=== PATIENT | female | born 1935 | race African-American/Black ===

== ENCOUNTER → 2018-11-17 | Outpatient (CLI) | payer MEDICARE ==
[2018-11-17 11:04] LABS: ANION GAP 8 (5-19); BLOOD UREA NITROGEN 20 mg/dL (7-20); CALCIUM 9.8 mg/dL (8.4-10.2); CARBON DIOXIDE 27 mmol/L (22-30); CHLORIDE 107 mmol/L (98-107); GLUCOSE 83 mg/dL (75-110); SODIUM 142.1 mmol/L (137-145)
[2018-11-18 15:37] LABS: CREATININE URINE 64.7 mg/dL (Not Estab.); MICROALBUMIN URINE 6.5 ug/mL (Not Estab.)
== END ==
LOC: OD 09:31
PROVIDERS: ATTEND Family Medicine
DX: E11.9 Type 2 diabetes mellitus without complications (principal)
CPT/HCPCS: 36415; 80048; 82043; 82570; 83036

== ENCOUNTER → 2019-02-01 | Outpatient (CLI) | payer MEDICARE ==
--- NOTE | 2019-02-04 14:55 | XCELERA REPORT ---
[address] [address] Lower Extremity Arterial Evaluation Name: MIGUEL SERRANO Age: 83 yrs Gender: Female : 1935 Patient Status: Preadmit Patient Location: SP Study Date: 02/01/2019 10:51 AM Procedure: A color flow and duplex scan of the lower extremity arteries was performed bilaterally with velocity and waveform anaylsis. Reason For Study: ABSENT PULSES Ordering Physician: GHANSHYAM GRIMALDO Performed By: Cori Sharp Measurements and Calculations Right Left Prox PFA PSV 162.3 141.0 cm/sec Prox SFA PSV 123.3 100.0 cm/sec Mid SFA PSV 103.1 29.8 cm/sec Dist SFA PSV 88.5 30.9 cm/sec Prox Pop A PSV 61.5 46.7 cm/sec Prox JESSICA PSV 21.1 cm/sec Mid JESSICA PSV 37.3 cm/sec Prox REAL ESTATE JOB TITLES PSV 34.1 cm/sec Mid REAL ESTATE JOB TITLES PSV 39.4 cm/sec Right Side Arterial Evaluation Normal velocity and triphasic waveforms, spectral broadening noted in the Common Femoral artery to Femoral . Biphasic with normal velocity, spectral broadening in the Popliteal to Posterior Tibial arteries. Monophasic with low normal, to low velocities in the Anterior Tibial. Ankle Brachial index 1.0. Left Side Arterial Evaluation Normal velocity and triphasic waveforms, spectral broadening noted in the Common Femoral artery to Femoral . Monophasic with low velocity, spectral broadening, attenuation from the Mid Femoral to infrageniculate vessels. Ankle Brachial index 0.6. Interpretation Summary Moderate hemodynamically significant lesions in the right lower extremity only, on duplex imaging, at rest. Severe hemodynamically significant lesions in the left lower extremity only, on duplex imaging, at rest. DOUGLAS's indicate normal findings on the right, moderate diminution on the left. These are non concordant with the duplex findings with are much worse. Clinical correlation is recommended. The patient is know to have vascular stents in place. : GHANSHYAM GRIMALDO > Ghanshyam Grimaldo
== END ==
LOC: SP 10:38
PROVIDERS: ATTEND Surgery
DX: R09.89 Other specified symptoms and signs involving the circulatory and respiratory systems (principal)
CPT/HCPCS: 93925

== ENCOUNTER → 2019-03-08 | Outpatient (CLI) | payer MEDICARE ==
--- NOTE | 2019-03-08 16:09 | XCELERA REPORT ---
[address] [address] Transthoracic Echocardiogram Report Name: MIGUEL SERRANO Age: 83 yrs Gender: Female : 1935 Patient Status: Outpatient Patient Location: SP Study Date: 03/08/2019 08:38 AM Height: 61 in Weight: 189 lb BSA: 1.8 m2 Reason For Study: BLE EDEMA Ordering Physician: ALEJANDRA^SEQUIA^A^^MD Performed By: Yee Combs Interpretation Summary MInimal post pericardial effusion Normal 3 cusps AV, but calcified aotic annulus, no , no AR.mod. calcified aortic cusps (RCC, NCC). Mild mitral annular calcification, thickened mitral leaflets No MS, no MVP, mild MR with mild LA enlargement. No LVH, LVEF 30-35%, with stage I LV diastolic dysfunctiion. Hypokinetic inferior wall, posterior wall, and apical lateral segments, The IVS and AW normal.Mild LV enlargement. RH is normal RVSP upper normal 30 mm , RAP 3 mm. mild TR, no TS. No ASD. MMode/2D Measurements & Calculations RVDd: 3.5 cm LVIDd: 4.9 cm FS: 18.8 % Ao root diam: 2.3 cm IVSd: 0.85 cm LVIDs: 4.0 cm EDV(Teich): Ao root area: LVPWd: 0.84 cm 114.1 ml ESV(Teich): 70.0 ml4.3 cm2 LA dimension: 3.3 cm EF(Teich): 38.6 % LVLd ap4: 7.1 cm SV(MOD-sp4): EDV(MOD-sp4): 29.0 ml 93.0 ml LVLs ap4: 6.5 cm ESV(MOD-sp4): 64.0 ml EF(MOD-sp4): 31.2 % Doppler Measurements & Calculations MV E max natali: MV P1/2t max natali: Ao V2 max: LV V1 max P.3 cm/sec 96.3 cm/sec 159.0 cm/sec 4.6 mmHg MV A max natali: MV P1/2t: 60.7 msec Ao max PG: LV V1 max: 133.3 cm/sec 10.1 mmHg 107.1 cm/sec MV E/A: 0.71 MVA(P1/2t): 3.6 cm2 MV dec slope: 464.1 cm/sec2 MV dec time: 0.19 sec PA V2 max: TR max natali: MV P1/2t-pr_phl: 66.1 cm/sec 282.3 cm/sec 60.7 msec PA max P.7 mmHgTR max P.9 mmHg : ALEJANDRA^RAYSHAWN^A^^MD > Bill Becker
== END ==
LOC: SP 07:57
PROVIDERS: ATTEND Family Medicine
DX: R60.0 Localized edema (principal)
CPT/HCPCS: 93306

== ENCOUNTER 2019-05-01 06:49 | Day surgery (SDC) | payer MEDICARE ==
[~2019-05-01 06:49] MED LIST: RADIAL COCKTAIL SYRINGE 10 ML IV PRN
[2019-05-01] MEDS ORDERED: HEPARIN SODIUM,PORCINE/NS/PF 2,000 UNIT/1,000 ML RTUINJ IV ONE (07:06)
[2019-05-01] MEDS ORDERED: LIDOCAINE 1% INJ-PF (10 MG/ML) 30 ML SDV ONE (07:06)
[2019-05-01] MEDS ORDERED: ASPIRIN 325 MG TABLET ONE (07:35)
[2019-05-01] MEDS ORDERED: DIPHENHYDRAMINE HCL 25 MG CAPSULE ONE (07:35)
[2019-05-01] MEDS ORDERED: DIAZEPAM 5 MG TABLET ONE (07:35)
[2019-05-01] MEDS ORDERED: HEPARIN SOD (PORCINE) 1,000 UNIT/ML 10 ML VIAL ONE (07:57)
[2019-05-01] MEDS ORDERED: FENTANYL CITRATE INJ/PF 100 MCG/2 ML AMPUL ONE (08:05)
[2019-05-01] MEDS ORDERED: MIDAZOLAM 2 MG/2 ML INJ ONE (08:05)
[2019-05-01] MEDS ORDERED: ASPIRIN 325 MG TABLET PO ONE (10:30)
[2019-05-01] MEDS ORDERED: DIPHENHYDRAMINE HCL 25 MG CAPSULE PO ONE (10:30)
[2019-05-01] MEDS ORDERED: DIAZEPAM 5 MG TABLET PO ONE (10:30)
--- NOTE | 2019-05-01 10:36 | Operative Report ---
Operative Report DATE OF SURGERY: 05/01/19 PREOPERATIVE DIAGNOSIS: Congestive heart failure, cardiomyopathy POSTOPERATIVE DIAGNOSIS: Left main coronary artery disease ostial circumflex disease OPERATION: Radial left heart catheterization coronary angiography and left vent riculography SURGEON: FRIDA PAULINO ANESTHESIA: Moderate Sedation PROCEDURE: After informed consent was obtained the patient was brought to the cardiac catheterization lab and the right wrist was prepared in usual sterile and draped manner. Hemodynamic access was gained using micropuncture technique and the patient was anticoagulated with heparin. An intra-arterial cocktail of verapamil and lidocaine was administered. Selective coronary angiography was performed with a [place] catheter. This was exchanged with pigtail catheter and left ventriculography was performed in standard HAGAN projection. The patient left the Cardiac Catheterization Lab in stable condition, with intact distal pulses and no chest pain or other complications from the procedure. Conscious sedation was initiated, monitored, and maintained during the procedure with the start time of 925 and a completion time of 955 for a total procedure t yanira of 30 minutes. A total of 1.5 milligrams of Versed and 75 mcg of fentanyl were used for conscious sedation. HEMODYNAMIC DATA: [Aortic pressure to beginning the case is 137/57 post ventriculography LV pressure is 140/20 aortic pressure on pullback is 136/59 there is no evidence of significant gradient across the aortic valve] CORONARY ANATOMY: [] VENTRICULOGRAPHY: Ventriculography is performed in the HAGAN projection and demonstrates [mildly reduced left ventricular function with inferior posterior moderate hypokinesis the anterior wall is hyper dynamic visually ejection fraction is in the 40% range] . CORONARY ANGIOGRAPHY: [] LEFT MAIN: [Left main has an eccentric 40-50% stenosis at and involving the origin of the circumflex and bifurcation of the left main into the LAD] LEFT ANTERIOR DESCENDING: [The LAD in the midportion at a bifurcation with a large second diagonal branch has a 30 to 40% stenosis the ongoing LAD is normal and transapical it is a moderate to large caliber vessel] CIRCUMFLEX CORONARY: The circumflex is subtotally occluded there is TAMI II grade flow with a 95 to 99% ostial stenosis the ongoing circumflex gives rise to a bike bifurcating first obtuse marginal second obtuse marginal and what appears to be a codominant AV groove circumflex that is somewhat underfilled RIGHT CORONARY ARTERY: The right coronary artery is small caliber and minimally codominant with the circumflex and LAD no critical or focal obstructive lesions are seen IMPRESSION: 1. No evidence of significant valvular heart disease 2. Mildly reduced left ventricular function with inferior lateral hypokinesis 3. TAMI II grade flow and a subtotally occluded circumflex 4. 40 to 50% distal left main at the bifurcation of the LAD and involving the circumflex Recommendations: Patient would be best served with cardiothoracic surgery consultation and possible bypass In the event that she is deemed too high risk percutaneous intervention with hemodynamic support is possible CC Dr. Fuad Barrientos
--- NOTE | 2019-05-01 11:21 | EKG REPORT ---
SEVERITY:- ABNORMAL ECG - SINUS RHYTHM ABNORMAL T, CONSIDER ISCHEMIA, LATERAL LEADS : Confirmed by: Nayana Zayas MD 01-May-2019 11:21:10
[2019-05-01 12:46] VITALS: BP 144/83
--- NOTE | 2019-05-02 10:53 | RADIOLOGY REPORT (SQ) ---
EXAM DESCRIPTION: LEFT HEART CATH COMPLETE COMPLETED DATE/TIME: 05/02/2019 8:16 am REASON FOR STUDY: CHEST PAIN I50.9 HEART FAILURE, UNSPECIFIED COMPARISON: None. FLUOROSCOPY TIME: 2.9 minutes fluoroscopy time 21 images saved to PACS. TECHNIQUE: Intra-operative images acquired during surgical procedure to evaluate progress. NUMBER OF IMAGES: 21 LIMITATIONS: None. FINDINGS: Intraoperative fluoroscopic images obtained for cardiac catheterization. Please see opera tive report for detailed description. IMPRESSION: IMAGE(S) OBTAINED DURING PROCEDURE. COMMENT: Quality ID [id number]: Final reports for procedures using fluoroscopy that document radiation exp osure indices, or exposure time and number of fluorographic images (if radiation exposure indices are not available) Please consult full operative report of the attending physician for description of the procedure. TECHNICAL DOCUMENTATION: JOB ID: [id number] [employer]- All Rights Reserved Reading location - IP/workstation name: [email or web address]
== END 2019-05-01 12:45 | disposition home or self-care (01) ==
LOC: CCL 06:49
PROVIDERS: ATTEND Internal Medicine Cardiovascular Disease
DX: I25.10 Atherosclerotic heart disease of native coronary artery without angina pectoris (principal); E78.5 Hyperlipidemia, unspecified; E03.9 Hypothyroidism, unspecified; E11.9 Type 2 diabetes mellitus without complications; I10 Essential (primary) hypertension; I73.9 Peripheral vascular disease, unspecified; Z87.891 Personal history of nicotine dependence
CPT/HCPCS: 82962; 93458; 93005; 93010; J2250; A9270 ×3; J3010; J1644 ×2; J3490 ×4

== ENCOUNTER 2019-05-29 10:53 | Emergency (ER) | payer MEDICARE ==
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
[2019-05-29] MEDS ORDERED: ASPIRIN 81 MG TABLET, CHEWABLE PO ONE (11:31)
--- NOTE | 2019-05-29 12:00 | RADIOLOGY REPORT (SQ) ---
EXAM DESCRIPTION: CHEST SINGLE VIEW COMPLETED DATE/TIME: 05/29/2019 11:52 am REASON FOR STUDY: Anterior chest pain, 3 weeks postop CABG COMPARISON: None. NUMBER OF VIEWS: One view. TECHNIQUE: Single frontal radiographic view of the chest acquired. LIMITATIONS: None. FINDINGS: LUNGS AND PLEURA: No opacities, masses or pneumothorax. No pleural effusion. MEDIASTINUM AND HILAR STRUCTURES: No masses. Contour normal. HEART AND VASCULAR STRUCTURES: Heart normal in size. Normal vasculature. BONES: No acute findings. HARDWARE: Sternotomy wires are in place. OTHER: No other significant finding. IMPRESSION: NO SIGNIFICANT RADIOGRAPHIC FINDING IN THE CHEST. TECHNICAL DOCUMENTATION: JOB ID: [id number] [employer]- All Rights Reserved Reading location - IP/workstation name: [email or web address]
--- NOTE | 2019-05-29 12:36 | EKG REPORT ---
SEVERITY:- ABNORMAL ECG - SINUS RHYTHM BORDERLINE LEFT AXIS DEVIATION ABNORMAL T, CONSIDER ISCHEMIA, LATERAL AND INFERIOR LEADS LEADS, NO CHANGE. : Confirmed by: Bill Becker MD 29-May-2019 12:34:56
[2019-05-29 12:37] LABS: ABSOLUTE BASOPHILS # (AUTO) 0.2 10^3/uL (0.0-0.2); ABSOLUTE EOSINOPHILS # (AUTO) 1.8 10^3/uL (0.0-0.6); ABSOLUTE LYMPHOCYTES (AUTO) 2.9 10^3/uL (0.5-4.7); ABSOLUTE MONOCYTES (AUTO) 1.2 10^3/uL (0.1-1.4); ABSOLUTE NEUT (AUTO) 7.4 10^3/uL (1.7-8.2); BASOPHILS % (AUTO) 1.7 % (0-2); EOSINOPHILS % (AUTO) 13.4 % (0-6); HEMATOCRIT 33.5 % (36.0-47.0); HEMOGLOBIN 10.9 g/dL (12.0-15.5); LYMPHOCYTES % (AUTO) 21.6 % (13-45); MEAN CORPUSCULAR HEMOGLOBIN 27.7 pg (27.0-33.4); MEAN CORPUSCULAR HGB CONC 32.6 g/dL (32.0-36.0); MEAN CORPUSCULAR VOLUME 85 fl (80-97); MONOCYTES % (AUTO) 8.6 % (3-13); RED BLOOD COUNT 3.93 10^6/uL (3.72-5.28); RED CELL DISTRIBUTION WIDTH 16.3 % (11.5-14.0); SEGMENTED NEUTROPHILS % (AUTO) 54.7 % (42-78); TOTAL CELLS COUNTED % (AUTO) 100 %; WHITE BLOOD COUNT 13.6 10^3/uL (4.0-10.5)
[2019-05-29 12:48] LABS: ALBUMIN 4.1 g/dL (3.5-5.0); ALKALINE PHOSPHATASE 102 U/L (38-126); ANION GAP 10 (5-19); ASPARTATE AMINO TRANSFERASE 37 U/L (14-36); BILIRUBIN,DIRECT 0.2 mg/dL (0.0-0.4); BILIRUBIN,TOTAL 0.3 mg/dL (0.2-1.3); BLOOD UREA NITROGEN 15 mg/dL (7-20); CALCIUM 9.9 mg/dL (8.4-10.2); CARBON DIOXIDE 29 mmol/L (22-30); CHLORIDE 98 mmol/L (98-107); CREATINE KINASE 35 U/L (30-135); GLUCOSE 174 mg/dL (75-110); POTASSIUM 4.4 mmol/L (3.6-5.0); TOTAL PROTEIN 7.4 g/dL (6.3-8.2)
[2019-05-29 12:59] LABS: CREATINE KINASE MB 0.72 ng/mL (<4.55)
[2019-05-29 13:00] LABS: PLATELET COUNT 311 10^3/uL (150-450)
[2019-05-29 13:02] LABS: TROPONIN I < 0.012 ng/mL
--- NOTE | 2019-05-29 15:30 | RADIOLOGY REPORT (SQ) ---
EXAM DESCRIPTION: CTA CHEST COMPLETED DATE/TIME: 05/29/2019 3:10 pm REASON FOR STUDY: Sharp chest pain, S/P CABG 3 weeks ago COMPARISON: AP CHEST 05/29/2019 TECHNIQUE: CT scan of the chest performed using helical scanning technique with dynamic intravenous contrast injection. Images reviewed with lung, soft tissue and bone windows. Reconstructed coronal and sagittal MPR images reviewed. Additional 3 dimensional post-processing performed to develop Maximal Intensity Projection images (AL P). All images stored on PACS. All CT scanners at this facility use dose modulation, iterative reconstruction, and/or weight based d osing when appropriate to reduce radiation dose to as low as reasonably achievable (ALARA). [facility]: Dose Right [facility]: CareDose [facility]: Dose Right [facility]: Teradose 4D [facility]: [employer] CONTRAST TYPE AND DOSE: contrast/concentration: Isovue 350.00 mg/ml; Total Contrast Delivered: 62.0 ml; Total Saline Delivered: 50.0 ml Contrast bolus optimized for the pulmonary arteries and thoracic aorta. RENAL FUNCTION: Creatinine 0.9 RADIATION DOSE: CT Rad equipment meets quality standard of care and radiation dose reduction techniq ues were employed. CTDIvol: 29.7 - 29.8 mGy. DLP: 1147 mGy-cm. . LIMITATIONS: None. FINDINGS: LUNGS AND PLEURA: No masses, infiltrates, or pneumothorax. No pleural effusions or pleura l calcifications. AORTA AND GREAT VESSELS: No aneurysm or dissection. HEART: No pericardial effusion. No significant coronary artery calcifications. Post recent sternotom y and CABG PULMONARY ARTERIES: No emboli visualized in the main pulmonary arteries or the segmental branches. HILAR AND MEDIASTINAL STRUCTURES: No identified masses or abnormal nodes. Small retrocardiac hiatal hernia HARDWARE: None in the chest. UPPER ABDOMEN: Multiple stones in the gallbladder. No gross gallbladder wall thickening or perichole cystic fluid THYROID AND OTHER SOFT TISSUES: No masses. No adenopathy. BONES: No acute or significant finding. 3D MIPS: Confirm above findings. OTHER: No other significant finding. IMPRESSION: No CT angio evidence of acute pulmonary emboli or thoracic aortic dissection. Post rece nt sternotomy for CABG Stones in the gallbladder without gallbladder wall thickening or pericholecystic fluid COMMENT: Quality ID # [id number]: Final reports with documentation of one or more dose reduction techniques (e.g., Automated exposure control, adjustment of the mA and/or kV according to patient size, use of iterative reconstruction technique) TECHNICAL DOCUMENTATION: JOB ID: [id number] [employer]- All Rights Reserved Reading location - IP/workstation name: [email or web address]
[2019-05-29 16:06] VITALS: BP 140/76
== END 2019-05-29 17:41 ==
LOC: ER 10:53
DX: R07.89 Other chest pain (principal); M79.651 Pain in right thigh; Z95.5 Presence of coronary angioplasty implant and graft; I10 Essential (primary) hypertension; E11.9 Type 2 diabetes mellitus without complications; J44.9 Chronic obstructive pulmonary disease, unspecified
CPT/HCPCS: 93005; 99285; 36415; 82553; 82550; 85025; 80053; 84484; 71045; 71275; 93010; A9270

== ENCOUNTER → 2020-01-21 | Outpatient (CLI) | payer MEDICARE ==
[2020-01-21 09:37] LABS: ALBUMIN 4.3 g/dL (3.5-5.0); ALKALINE PHOSPHATASE 102 U/L (38-126); ANION GAP 10 (5-19); ASPARTATE AMINO TRANSFERASE 26 U/L (14-36); BILIRUBIN,TOTAL 0.4 mg/dL (0.2-1.3); BLOOD UREA NITROGEN 16 mg/dL (7-20); CALCIUM 9.9 mg/dL (8.4-10.2); CARBON DIOXIDE 26 mmol/L (22-30); CHLORIDE 102 mmol/L (98-107); CHOLESTEROL 213.95 mg/dL (0-200); GLUCOSE 218 mg/dL (75-110); POTASSIUM 4.2 mmol/L (3.6-5.0); TOTAL PROTEIN 7.1 g/dL (6.3-8.2); TRIGLYCERIDES 97 mg/dL (<150)
[2020-01-21 09:48] LABS: DIRECT LDL 106 mg/dL (<100)
--- NOTE | 2020-01-21 12:25 | RADIOLOGY REPORT (SQ) ---
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 NUMBER OF VIEWS: Two views TECHNIQUE: AP, lateral, radiographic images acquired of the lumbar spine. LIMITATIONS: None. FINDINGS: MINERALIZATION: Normal. SEGMENTATION: Normal. No transitional anatomy. ALIGNMENT: Normal. VERTEBRAE: Maintained height. No fracture or worrisome bone lesion. DISCS: Multilevel disc space narrowing with osteophytes. POSTERIOR ELEMENTS: Prior posterior decompression L4- 5 and L5-S1. HARDWARE: None in the spine. PARASPINAL SOFT TISSUES: Calcified aorta. PELVIS: Intact as visualized. No fractures or worrisome bone lesions. SI joints intact. OTHER: No other significant finding. IMPRESSION: Spondylosis. Prior lower lumbar surgery. TECHNICAL DOCUMENTATION: JOB ID: [id number] [employer]- All Rights Reserved Reading location - IP/workstation name: [email or web address]
--- NOTE | 2020-01-21 14:14 | RADIOLOGY REPORT (SQ) ---
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 NUMBER OF VIEWS: Two views TECHNIQUE: AP pelvis and additional frog-leg view of both hips. LIMITATIONS: None. FINDINGS: MINERALIZATION: Normal. HIPS: No acute fracture or dislocation. No worrisome bone lesions. PELVIS AND SACRUM: There is sclerosis along the inferior aspect of the left sacroiliac joint. PUBIS AND ISCHIUM: No acute fracture. LOWER LUMBAR SPINE: No significant findings as visualized. SOFT TISSUES: No findings. OTHER: No other significant finding. IMPRESSION: Left sacroiliitis. Morphologically normal hips. TECHNICAL DOCUMENTATION: JOB ID: [id number] 2010 [employer]- All Rights Reserved Reading location - IP/workstation name: [email or web address]
[2020-01-22 06:37] LABS: CREATININE URINE 179.8 mg/dL (Not Estab.); MICROALBUMIN URINE 13.2 ug/mL (Not Estab.)
== END ==
LOC: OD 08:22
PROVIDERS: ATTEND Family Medicine
DX: M25.551 Pain in right hip (principal); M25.552 Pain in left hip; M46.1 Sacroiliitis, not elsewhere classified; M47.897 Other spondylosis, lumbosacral region; M54.5 Low back pain; I25.810 Atherosclerosis of coronary artery bypass graft(s) without angina pectoris; E11.649 Type 2 diabetes mellitus with hypoglycemia without coma
CPT/HCPCS: 36415; 72100; 73522; 80053; 80061; 82043; 82570; 83036

== ENCOUNTER → 2020-03-15 | Outpatient (CLI) | payer MEDICARE ==
--- NOTE | 2020-03-15 12:42 | RADIOLOGY REPORT (SQ) ---
EXAM DESCRIPTION: SHOULDER RIGHT 2 OR MORE VIEWS IMAGES COMPLETED DATE/TIME: 03/15/2020 9:42 am REASON FOR STUDY: RIGHT SHOULDER PAIN M25.511 PAIN IN RIGHT SHOULDER COMPARISON: None. NUMBER OF VIEWS: Three views. TECHNIQUE: Internal rotation, external rotation, and Y view images acquired of the right shoulder. LIMITATIONS: None. FINDINGS: MINERALIZATION: Normal. BONES: No acute fracture. No worrisome bone lesions. Prominent osteophytes at the acromioclavicular j oint. GLENOHUMERAL JOINT: No significant findings. ACROMIOCLAVICULAR JOINT: Prominent osteophytes. SOFT TISSUES: No calcifications. VISUALIZED RIBS, SPINE, AND LUNG: No other significant finding. OTHER: No other significant finding. 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 NO ACUTE FINDINGS. TECHNICAL DOCUMENTATION: JOB ID: [id number] [employer]- All Rights Reserved Reading location - IP/workstation name: [email or web address]
== END ==
LOC: OD 09:19
PROVIDERS: ATTEND Family Medicine
DX: M25.711 Osteophyte, right shoulder (principal); M25.511 Pain in right shoulder

== ENCOUNTER → 2020-08-21 | Outpatient (CLI) | payer MEDICARE ==
--- NOTE | 2020-08-21 10:27 | ER RDC ASSESSMENT REPORT ---
Intake - In the Last 14 days Have you traveled outside [place]?: No Have you been in close contact with someone CONFIRMED: No Worked in Healthcare?: No - Symptoms Subjective Fever(Morrison feverish): No Chills: No Muscule Aches: No Runny Nose: No Sore Throat: No Cough (New or worsening chronic cough): Yes Shortness of breath: No Nausea or Vomiting: No Headache: No Abdominal Pain: No Diarrhea(3 or more loose stools in last 24 hours): No - Do you have any of the following Chronic lung disease: Asthma or emphysema or COPD: No Cystic Fibrosis: No Diabetes: Yes High Blood Pressure: Yes Cardiovascular Disease: Yes Chronic Kidney Disease: No Chronic Liver Disease: No Chronic blood disorder like Sickle Cell Disease: No Weak immune system due to disease or medication: No Neurologic condition that limits movement: No Developmental delay - Moderate to Severe: No Recent (within past 2 weeks) or current : No Morbid Obesity (>100 pounds over ideal weight): No - Objective Temperature: 98.8 F Pulse Rate: 74 Respiratory Rate: 14 Blood Pressure: 133/61 O2 Sat by Pulse Oximetry: 93 Objective: Given above, testing performed: covid Disposition: Home; Selfcare General - General Stated Complaint: cough Time Seen by Provider: 08/21/20 09:45 Mode of Arrival: Ambulatory Information source: Patient - HPI Notes: 85-year-old female presents to [facility] clinic for COVID-19 testing. She reports no known contact with Covid positive individual. Patient reports onset of symptoms 08/16/2020. She is only complaining of a mild cough that is productive of light yellow phlegm at times. Denies any fever or chills, muscle aches, runny nose or sore throat, shortness of breath, nausea or vomiting, headache, abdominal pain or diarrhea. - Related Data Allergies/Adverse Reactions: No Known Allergies Allergy (Verified 04/30/19 15:09) Past Medical History - General Information source: Patient - Social History Smoking Status: Former Smoker Family History: Reviewed & Not Pertinent - Past Medical History Cardiac Medical History: Reports: Hx Coronary Artery Disease, Hx Heart Attack - "doctor says I've had one", Hx Hypercholesterolemia, Hx Hypertension Pulmonary Medical History: Reports: Hx Bronchitis, Hx COPD Denies: Hx Asthma, Hx Pneumonia EENT Medical History: Reports: None Neurological Medical History: Reports: None. Denies: Hx Cerebrovascular Accident, Hx Seizures Endocrine Medical History: Reports: Hx Diabetes Mellitus Type 2 Renal/ Medical History: Reports: None. Denies: Hx Peritoneal Dialysis Malignancy Medical History: Reports: None GI Medical History: Reports: None Musculoskeletal Medical History: Reports Hx Arthritis Skin Medical History: Reports None Psychiatric Medical History: Reports: None Traumatic Medical History: Reports: None Infectious Medical History: Reports: None Past Surgical History: Reports: Hx Cardiac Surgery - triple CABG Physical Exam - General General appearance: Appears well, Alert In distress: None Notes: PHYSICAL EXAMINATION: GENERAL: Well-appearing and in no acute distress. HEAD: Atraumatic, normocephalic. EYES: sclera anicteric, conjunctiva are normal. ENT: nares patent. Moist mucous membranes. NECK: Normal range of motion, supple without lymphadenopathy. LUNGS: No increased work of breathing. Lung sounds CTAB and equal. No wheezes rales or rhonchi. HEART: Regular rate and rhythm without murmurs. ABDOMEN: Soft, nontender, normal bowel sounds, no guarding. EXTREMITIES: Normal range of motion, no pitting edema. No cyanosis. NEUROLOGICAL: A&O x 3. Normal speech. PSYCH: Normal mood, normal affect. SKIN: Warm, Dry, normal turgor, no rashes or lesions noted Patient Education/Counseling Counseling/Education: Patient presents with symptoms associated with possible Covid 19 infection. Patient does not have emergency worrying symptoms such as difficulty breathing, shortness of breath, chest pain, pressure, confusion or cyanosis. Patient appears suitable for discharge as vital signs are stable and patient is nontoxic in appearance. Good return precautions have been discussed with patient, patient verbalized understanding and is agreeable with discharge plan of care at this time. Guidance for worsening S/SX: As a person under investigation for Covid 19, the [place] department of Health and Human Services, division of public health advises you to adhere to the following guidance until your test results are reported to you. If your test result is positive, you will receive additional information from your provider and your local health department at that time. Remain at home until you are cleared by the health provider or public health authorities. Keep a log of visitors to your home, notify any visitors to your home of your isolation status. If you plan to move to a new address or leave the county, notify the local health department in your County. Call your doctor or seek care if you have an urgent medical need. Before seeking medical care, call ahead to get instructions from the provider before arriving at the medical office clinic or hospital. Notify them that you are being tested for the virus that causes Covid 19 so that arrangements can be made, as necessary, to prevent transmission to others in the healthcare setting. Next, notify the local health department in your county. If a medical emergency arises and you need to call 911, inform the first responders that you are being tested for the virus that causes Covid 19. Next, notify the local health department in your county. RDC Discharge - Discharge Clinical Impression: Encounter for screening laboratory testing for COVID-19 virus Condition: Good Disposition: Home; Selfcare
[2020-08-21 10:28] VITALS: BP 133/61
== END ==
LOC: RDC 09:35
PROVIDERS: ATTEND Registered Nurse
DX: Z20.828 Contact with and (suspected) exposure to other viral communicable diseases (principal); R05 Cough; I10 Essential (primary) hypertension; I25.10 Atherosclerotic heart disease of native coronary artery without angina pectoris; E78.00 Pure hypercholesterolemia, unspecified; E11.9 Type 2 diabetes mellitus without complications
CPT/HCPCS: U0003; C9803; 87635

== ENCOUNTER → 2020-09-29 | Outpatient (CLI) | payer MEDICARE ==
--- NOTE | 2020-09-29 12:48 | RADIOLOGY REPORT (SQ) ---
EXAM DESCRIPTION: SHOULDER BILAT 2 OR MORE VIEWS IMAGES COMPLETED DATE/TIME: 09/29/2020 10:10 am REASON FOR STUDY: M25.512 PAIN IN LEFT SHOULDER M25.511 PAIN IN RIGHT SHOULDER M25.511 PAIN IN RIGH T SHOULDER M25.512 PAIN IN LEFT SHOULDER COMPARISON: None. NUMBER OF VIEWS: Three views. TECHNIQUE: Internal rotation, external rotation, and Y view images acquired of the right and left sh oulder. LIMITATIONS: None. FINDINGS: MINERALIZATION: Normal. BONES: No acute fracture. No worrisome bone lesions. GLENOHUMERAL JOINT: Subchondral cysts are seen in the glenoid on the left. There is a prominent patricia inal osteophyte on the humeral head on the left. ACROMIOCLAVICULAR JOINT: No large osteophytes. SOFT TISSUES: No calcifications. VISUALIZED RIBS, SPINE, AND LUNG: No other significant finding. OTHER: No other significant finding. 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 No other significant finding s. TECHNICAL DOCUMENTATION: JOB ID: [id number] [employer]- All Rights Reserved Reading location - IP/workstation name: [email or web address]
== END ==
LOC: RAD 09:43
PROVIDERS: ATTEND Family Medicine
DX: M25.511 Pain in right shoulder (principal); M19.012 Primary osteoarthritis, left shoulder; M25.512 Pain in left shoulder